=== PATIENT | male | born 1950 | race Caucasian/White ===

== ENCOUNTER → 2021-06-16 | Outpatient (CLI) | payer MEDICARE, SELFPAY ==
--- NOTE | 2021-06-16 12:52 | CT_ITS ---
STUDY: CT SOFT TISSUE NECK WITH CONTRAST REASON FOR EXAM: Male, 70 years old. L SUBMANDIBULAR MASS RADIATION DOSAGE (If Supplied By Facility): CTDIvol = ( 15.74 ) mGy, DLP = ( 456.00 ) mGycm TECHNIQUE: The patient was scanned in a multi-detector CT scanner. High resolution transaxial imaging was performed following intravenous administration of 100 CC ISOVUE 300. Sagittal and coronal images were reconstructed. Individualized dose optimization techniques were used for this CT. COMPARISON: None. FINDINGS: Normal bilateral parotid glands. Normal bilateral national accounts recruiter spaces. Normal bilateral parapharyngeal spaces. Normal bilateral carotid spaces. Normal bilateral sublingual and submandibular glands and spaces. There is a 1.3 cm x 1.4 cm lymph node in the anterior aspect of the left submandibular region. A similar appearing nodule measuring 0.8 cm seen on the right side. Normal visualized nasopharynx. Normal retropharyngeal space. Normal perivertebral space. Normal visualized bilateral faucial tonsils. The visualized tongue, tongue base and oropharynx are normal. There are minimally enlarged lymph nodes of the neck, with preservation of normal darby architecture, consistent with a reactive lymph hyperplasia. There is no demonstrated solid or cystic mass lesion. There is no abnormal contrast enhancement. Normal epiglottis, bilateral vallecula and hypopharynx. The pre-epiglottic and paraglottic adipose spaces are normal. Normal visualized bilateral piriform sinuses, aryepiglottic folds, vocal cords, and arytenoid-cricoid articulations. Normal subglottic trachea. Normal bilateral lobes of the thyroid gland. Normal visualized pulmonary apices. Normal visualized paranasal sinuses. There is multilevel degenerative changes of the cervical spine. CT/Soft Tissue Neck WITH Contrast IMPRESSION: The palpable and mild to corresponds to a 1.3 cm x 1.4 cm lymph node in the anterior submandibular space on the left side. Electronically Signed: Zafar Antonio MD at 13:37 EDT ,
[2021-06-16 13:05] LABS: EGFR FINGERSTICK > 60.0000 mL/min (>60)
== END | disposition home or self-care (01) ==
LOC: CT 12:50
PROVIDERS: PCP Physician Assistant; Referring Provider Otolaryngology; Visit Provider Otolaryngology
DX: R22.1 Localized swelling, mass and lump, neck (principal)
CPT/HCPCS: 70491; Q9967

== ENCOUNTER → 2021-06-28 | Outpatient (CLI) | payer MEDICARE, SELFPAY ==
--- NOTE | 2021-06-28 | ASPOS_PTH ---
PATIENT: OLIVIA BURNETTE LOC: LAB U#:[id number] AGE/SX: 70/M ROOM: RE06/28/[address]: Dr. Beck Washington MD : 1950 BED: DIS: 06/28/2021 SPEC #: [id number] RECD: 06/28/21 13:34 STATUS: BOO REEliezer #: [id number] JASSON: 06/28/21 00:[address]: Beck Washington DEPT: CYTOLOGY RECD BY: Mauri Almeida ENTERED: 06/28/21 13:35 SP TYPE: ASP HERE OTHR DR: NICK Zuluaga Tissues: Neck, NOS Procedures: Surgery Specimen Level IV Cytology Other Fine Needle Asp on Site HEADER OPERATION: Fine needle aspiration, left neck mass PRE-OP DIAGNOSIS: Left neck mass TISSUE SUBMITTED: FNA left neck mass DIAGNOSIS CYTOLOGY Fine needle aspiration, left neck mass (smears and cell block): Polymorphous lymphocytes. No evidence of lymphoma. See comment. AM:elvis 06/30/2021 COMMENT The specimen is evaluated at the time of FNA by Dr. Reynoso. Immediate Evaluation = Polymorphous lymphocytes present. Immunohistochemistry ([id number]) supports the above diagnosis. Flow cytometry analysis from [facility] reveals no detectable immunophenotypic evidence of B-cell non-Hodgkin?s lymphoma. The CD4:CD8 T-cell ratio is mildly elevated. This is a nonspecific finding. The flow cytometry report is viewable in patient?s EMR. Case has been reviewed in consultation with Dr. Montgomery who concurs with the above diagnosis. IDC:[facility]J CYTOLOGY STUDY Slides are reviewed. CYTOLOGY GROSS Received is 0.2 ml of reddish fluid labeled with the patient's name, and designated left neck mass. Five imprints and three paps are made from the submitted fluid and the rest is added to CytoLyt for cell block preparation. Submitted for cytology study. / AM:elvis 06/28/2021 TC:5 CPT: 12245, 61412, 23456, 82001
--- NOTE | 2021-06-28 | IMM_PTH ---
PATIENT: OLIVIA BURNETTE LOC: LAB U#:[id number] AGE/SX: 70/M ROOM: RE06/28/[address]: Dr. Beck Washington MD : 1950 BED: DIS: 06/28/2021 SPEC #: [id number] RECD: 06/29/21 12:11 STATUS: BOO REQ #: [id number] JASSON: 06/28/21 00:[address]: Beck Washington DEPT: IMMUNOHISTOCHEMISTRY RECD BY: Krystal Trinidad ENTERED: 06/29/21 12:19 SP TYPE: IMMUNO OTHR DR: NICK Zuluaga Tissues: Neck, NOS Procedures: BCL-2 (add) CD20 (add) CD45 (add) CD5 (add) CD79A (add) CD3 (initial) PHYSICIAN & INSTITUTION [place] [phone] SPECIMEN INFORMATION: Tissue Source: Left neck mass Clinical Info: Left neck mass Specimen Number: [id number] CPT code: 79438, 48785 x5 METHODOLOGY: Deparaffinized sections of prefer/formalin-fixed tissue or PAP/DQ stained slides are incubated with monoclonal/polyclonal antibodies/oligonucleotide probes. Localization is made via biotin free immunoperoxidase method. Appropriate controls are performed and reacted as expected. Results on target cell population are indicated in the following table: RESULTS: ANTIBODY / CLONE RESULT CD3 (PS1) positive CD5 (SP10) negative CD20 (L26) negative CD45 (RP2/18) positive CD79a (11E3) positive, occasional BCL-2 (bcl-2/100/D5) negative These tests were developed and their performance characteristics determined by [facility]. They may not have been cleared or approved by the U.[place]. Food and Drug Administration. The FDA has determined that such clearance or approval is not necessary. The above immunohistochemical/dualISH markers are ordered and reviewed by the Pathologist. INTERPRETATION: Left neck mass, fine needle aspiration: No evidence of lymphoma. AM:elvis 06/30/2021
== END | disposition home or self-care (01) ==
PROVIDERS: PCP Physician Assistant; Referring Provider Otolaryngology; Visit Provider Otolaryngology
DX: R22.1 Localized swelling, mass and lump, neck (principal)
CPT/HCPCS: 10021; 88161; 88305; 88341; 88342

== ENCOUNTER → 2024-09-18 | Outpatient (CLI) | payer MEDICARE, SELFPAY ==
--- NOTE | 2024-09-18 13:47 | NEURO ---
NCS and/or EMG Patient Report Ordering Doctor: Lanny Price DATE OF SERVICE: 09/18/24 Obed presents with complaints of numbness and tingling in the left hand. Electrodiagnostic findings: Left median motor nerve demonstrates prolonged distal latency with normal amplitude and reduced conduction velocity. Left ulnar motor response is within normal limits, including conduction across the elbow. Prolonged left median F?wave. Prolonged left median sensory latency at the wrist. Needle EMG testing was performed the left upper limb. All muscles tested showed no evidence of denervation with normal motor unit action potentials. Electrodiagnostic impression: This is an abnormal study in the left upper limb. Electrodiagnostic findings are suggestive of left-sided median mononeuropathy. This is consistent with a moderate left carpal tunnel syndrome Multi Select Codes Neurology Neurology Interp Codes: 06156-82 Musc test done w/n test comp (interp) and 69903-69 Nrv cndj tst 5-6 studies (interp)
== END | disposition home or self-care (01) ==
LOC: PSN 10:29
PROVIDERS: PCP Physician Assistant; Referring Provider Physician Assistant; Visit Provider Physician Assistant
DX: R20.0 Anesthesia of skin (principal); R20.2 Paresthesia of skin
CPT/HCPCS: 95886; 95909